=== PATIENT | female | born 1955 | race Caucasian/White ===

== ENCOUNTER 2017-11-16 12:05 | Observation (INO) | payer OTHER ==
[~2017-11-16] VITALS: Ht 167.6 cm; Wt 71.2 kg
[~2017-11-16 12:05] MED LIST: ARIP5TAB9 PO; CHOL200013 PO; CIPR-278 PO; CITRICAL PO; CYCL5TAB PO; ESCI10TA PO; FISH12002 PO; METR500T4 PO; MULT-1250 PO; OMEP20CA10 PO; P-EP-94 PO; PROG100C6 PO; RHODIOLA ROSEA PO; THYR60TA2 PO; VITA1TAB22 PO; ZOLP5TAB2 PO; [UNRECOGNIZED DRUG - OTHER] PO
[2017-11-16] MEDS ORDERED: SODIUM CHLORIDE 0.9% 1000ML 1,000 ML IV ONE (13:03)
[2017-11-16 13:26] LABS: BASOPHILS % (AUTO) 0.5 % (0.0-5.0); EOSINOPHILS % (AUTO) 0.8 % (0.0-8.0); HEMATOCRIT 25.5 % (36-48); LYMPHOCYTES % (AUTO) 9.9 % (21.0-51.0); MEAN CORPUSCULAR HEMOGLOBIN 30.1 pg (27.0-33.0); MEAN CORPUSCULAR HGB CONC 33.8 g/dL (32.0-36.0); MEAN CORPUSCULAR VOLUME 89.3 fL (79-99); NEUTROPHILS % (AUTO) 73.8 % (40.0-77.0); PLATELET COUNT (AUTO) 103 K/uL (130-400); RED BLOOD CELL COUNT(AUTO) 2.86 MIL/uL (4.00-5.50); RED CELL DISTRIBUTION WIDTH 15.6 % (11.0-15.5); WHITE BLOOD COUNT (AUTO) 5.7 K/uL (4.8-10.8)
[2017-11-16 13:39] LABS: CARBON DIOXIDE 24 mmol/L (21-32); CHLORIDE 107 mmol/L (101-111); CREATININE 0.9 mg/dL (0.5-1.5); GLOMERULAR FILTR. RATE CALC 68 mL/min (>60); GLUCOSE,RANDOM 77 mg/dL (70-105); POTASSIUM 3.5 mmol/L (3.5-5.1); SODIUM SERUM 140 mmol/L (136-145); UREA NITROGEN, BLOOD 11 mg/dL (7-18)
[2017-11-16 13:44] LABS: ALANINE AMINOTRANSFERASE 23 U/L (12-78); ALBUMIN 2.2 g/dL (3.5-5.0); ASPARTATE AMINOTRANSFERASE 25 U/L (10-37); BILIRUBIN,TOTAL 0.6 mg/dL (0.2-1.0); TOTAL PROTEIN, SERUM 6.3 g/dL (6.0-8.3)
[2017-11-16 13:49] LABS: LIPASE < 50 U/L (114-286)
[2017-11-16 15:24] LABS: APPEARANCE,URINE Clear (CLEAR); BILIRUBIN,URINE Negative (NEGATIVE); COLOR,URINE Yellow (YELLOW); GLUCOSE, URINE (UA) Negative (NEGATIVE); KETONES,URINE Trace mg/dL (NEGATIVE); LEUKOCYTE ESTERASE ,URINE Negative (NEGATIVE); NITRATE,URINE Negative (NEGATIVE); OCCULT BLOOD,URINE Negative (NEGATIVE); PROTEIN,URINE Negative (NEGATIVE)
[2017-11-16 18:30] VITALS: BP 109/72
[2017-11-16] MEDS ORDERED: PSYL0.4C2 PO (18:41)
[2017-11-16] MEDS ORDERED: SENN-178 PO (18:41)
[2017-11-16] MEDS ORDERED: ENOX120D5 SQ (18:41)
[2017-11-16] MEDS ORDERED: URSO300C4 PO (18:41)
[2017-11-16] MEDS ORDERED: ACAR25TA2 PO (18:41)
[2017-11-16] MEDS ORDERED: FENT50PAT TD (18:41)
[2017-11-16] MEDS ORDERED: POLY255P2 PO (18:41)
[2017-11-16] MEDS ORDERED: AMYL1CAP62 PO (18:41)
[2017-11-16] MEDS ORDERED: ONDA8TAB12 PO (18:41)
[2017-11-16] MEDS ORDERED: ACETAMINOPHEN 325 MG TAB PO PRN ×2 (18:45)
[2017-11-16] MEDS ORDERED: ONDANSETRON HCL 4 MG/2 ML VIAL IVP PRN (18:45)
[2017-11-16] MEDS ORDERED: CLONIDINE HCL 0.1 MG TABLET PO PRN (18:45)
[2017-11-16] MEDS ORDERED: LACTULOSE 20 GM/30 ML UDCUP PO PRN (18:45)
[2017-11-16] MEDS ORDERED: SODIUM CHLORIDE 0.9% 1000ML 1,000 ML IV SCH (18:45)
[2017-11-16 20:00] VITALS: BP 109/72
[2017-11-16] MEDS ORDERED: VANCOMYCIN 1GM+NS 250ML 250 ML IV SCH (23:30)
[2017-11-16] MEDS ORDERED: MORPHINE SULFATE 2 MG/ML 1ML SYG IVP PRN (23:30)
[2017-11-16] MEDS ORDERED: VANCOMYCIN PROTOCOL PER PHARMACY IV SCH (23:30)
[2017-11-16] MEDS ORDERED: VANCOMYCIN 1GM+NS 250ML 250 ML IV ONE (23:31)
[2017-11-17] VITALS: BP 120/76
[2017-11-17 00:01] LABS: THYROID STIMULATING HORMONE 3.03 uIU/mL (0.36-3.74)
[2017-11-17] MEDS ORDERED: LACTULOSE 20 GM/30 ML UDCUP PO ONE (00:15)
[2017-11-17 04:00] VITALS: BP 121/70
[2017-11-17 04:50] LABS: HEMATOCRIT 24.8 % (36-48); MEAN CORPUSCULAR HEMOGLOBIN 30.4 pg (27.0-33.0); MEAN CORPUSCULAR HGB CONC 34.5 g/dL (32.0-36.0); MEAN CORPUSCULAR VOLUME 88.2 fL (79-99); PLATELET COUNT (AUTO) 94 K/uL (130-400); RED BLOOD CELL COUNT(AUTO) 2.81 MIL/uL (4.00-5.50); RED CELL DISTRIBUTION WIDTH 15.8 % (11.0-15.5); WHITE BLOOD COUNT (AUTO) 6.8 K/uL (4.8-10.8)
[2017-11-17 04:57] LABS: CREATININE 0.8 mg/dL (0.5-1.5); POTASSIUM 3.6 mmol/L (3.5-5.1)
[2017-11-17 07:00] VITALS: BP 126/78
[2017-11-17] MEDS ORDERED: LACT PO (08:30)
[2017-11-17] MEDS ORDERED: LACTULOSE 20 GM/30 ML UDCUP PO SCH (09:00)
[2017-11-17] MEDS ORDERED: PSYLLIUM SEED 1 EACH PACKET PO SCH (09:00)
[2017-11-17] MEDS ORDERED: **HM** VIT D3 2000 UNITS PO SCH ×2 (09:00)
[2017-11-17] MEDS ORDERED: URSODIOL 300 MG CAPSULE PO SCH (09:00)
[2017-11-17 10:53] VITALS: BP 134/77
[2017-11-17] MEDS ORDERED: VANCOMYCIN 1GM+NS 250ML 250 ML IV SCH (11:30)
[2017-11-17] MEDS ORDERED: [UNRECOGNIZED DRUG - OTHER] PO SCH (12:00)
[2017-11-17] MEDS ORDERED: ACARBOSE 25 MG TABLET PO SCH (12:00)
[2017-11-17 15:45] VITALS: BP 117/73
[2017-11-17] MEDS ORDERED: LORATADINE/PSEUDOEPHED 5/120 MG 1 EACH TAB.SR.12H PO SCH (21:00)
[2017-11-17] MEDS ORDERED: PROGESTERONE 100 MG PO SCH (21:00)
[2017-11-17] MEDS ORDERED: ARIPIPRAZOLE 5 MG TABLET PO SCH (21:00)
[2017-11-17] MEDS ORDERED: CITALOPRAM 20 MG TABLET PO SCH (21:00)
[2017-11-17] MEDS ORDERED: ENOXAPARIN SODIUM 120 MG/0.8ML SQ SCH (21:00)
[2017-11-18] MEDS ORDERED: THYROID 60 MG PO SCH (07:30)
== END 2017-11-17 16:00 | disposition home or self-care (01) ==
LOC: EDH 12:05 → EDHIP 16:25 → 3BH 18:28
PROVIDERS: ADMIT Family Medicine; ATTEND Family Medicine
DX: C22.1 Intrahepatic bile duct carcinoma (principal); G93.40 Encephalopathy, unspecified; Z86.718 Personal history of other venous thrombosis and embolism; Z85.05 Personal history of malignant neoplasm of liver; Z87.891 Personal history of nicotine dependence
CPT/HCPCS: 36415 ×2; 71045; 80048; 80053; 81003; 82140 ×2; 83605; 83690; 84443; 85025; 85027; 87040; 93971; 96361; 96365; 96366; 96375; 99285; G0378 ×24; J3370 ×2; J7030 ×2; J1650